=== PATIENT | male | born 1945 | race Caucasian/White ===

== ENCOUNTER 2021-03-04 06:00 | Day surgery (SDC) | payer OTHER ==
[~2021-03-04 06:00] MED LIST: ACID REDUCER20 M1 PO; GABAPENTIN300 M2 PO; LANTUS SOL100 UNIT/1; LIPITOR40 M1 PO; LOSARTAN POTASS25 MG PO; NOVOLOG100 UNIT/1; ZOLOFT50 MG PO
== END 2021-03-04 14:45 | disposition home or self-care (01) ==
LOC: CIR.AMB 06:00 → AMB-ENDOS 10:30 → CIR.AMB 10:30
PROVIDERS: ATTEND Colon & Rectal Surgery
DX: T85.111A Breakdown (mechanical) of implanted electronic neurostimulator of peripheral nerve electrode (lead), initial encounter (principal); Z20.822 Contact with and (suspected) exposure to COVID-19
CPT/HCPCS: 64590; 95971; L8679